=== PATIENT | male | born 1955 | race Caucasian/White ===

== ENCOUNTER → 2022-02-11 | Outpatient (CLI) | payer MEDICARE, OTHER ==
[2022-02-11 10:32] LABS: HEMOGLOBIN 15.8 gm/dl (14.0-17.5); RED BLOOD COUNT 4.65 M/UL (4.20-5.50); WHITE BLOOD COUNT 5.2 K/UL (4.5-11.0)
[2022-02-11 10:53] LABS: BUN/CREATININE RATIO 17 (0-10)
[2022-02-13 12:12] LABS: CHOLESTEROL, TOTAL 214 mg/dL (100-199); HDL SIZE 9.1 nm (>=9.2); HDL-C 60 mg/dL (>39); HDL-P (TOTAL) 34.6 umol/L (>=30.5); LARGE HDL-P 5.5 umol/L (>=4.8); LARGE VLDL-P 1.2 nmol/L (<=2.7); LDL SIZE 21.6 nm (>20.5); LDL SIZE 21.6 nm (>=20.8); LDL-C 139 mg/dL (0-99); LDL-P 1458 nmol/L (<1000); LP-IR SCORE <25 (<=45); SMALL LDL-P 368 nmol/L (<=527); TRIGLYCERIDES 82 mg/dL (0-149); VLDL SIZE 41.3 nm (<=46.6)
== END ==
LOC: LAB 10:03
PROVIDERS: Emergency Medicine
DX: E78.2 Mixed hyperlipidemia (principal); M15.8 Other polyosteoarthritis; R73.03 Prediabetes; R97.20 Elevated prostate specific antigen [PSA]
CPT/HCPCS: 36415; 80053; 80061; 83704; 84153; 85025